=== PATIENT | female | born 1935 | race Caucasian/White ===

== ENCOUNTER → 2017-09-15 | Outpatient (CLI) | payer OTHER, BC ==
[~2017-09-15] MED LIST: AMBIEN 5 MG TABL5 M1 PO; ARIPIPRAZOLE2 MG PO; ASPIR-TRIN325 MG PO; ATORVASTATIN CA40 MG PO; AZITHROMYCIN 2250 MG PO; BENZONATATE100 MG PO; BUPROPION HCL150 M1 PO; CIPRO500 MG PO; DUONEB 2.5-0.5 M3 ML INH; FISH OIL 1,001000 M2 PO; FLAGYL500 MG PO; GLUCOSAMINE HC500 MG PO; NORVASC2.5 MG PO; PREDNISONE 10 M10 MG PO; TOPROL XL25 MG PO; ZOFRAN ODT4 MG PO; ZOLOFT50 M1 PO
== END ==
LOC: RAD 03:44
DX: Z12.31 Encounter for screening mammogram for malignant neoplasm of breast (principal)

== ENCOUNTER → 2018-01-06 | Outpatient (CLI) | payer OTHER, BC ==
[~2018-01-06] MED LIST changes: -ARIPIPRAZOLE2 MG PO; -CIPRO500 MG PO; -FISH OIL 1,001000 M2 PO; -FLAGYL500 MG PO; -ZOFRAN ODT4 MG PO; -ZOLOFT50 M1 PO
== END ==
LOC: RAD 12:33
DX: J98.4 Other disorders of lung (principal)

== ENCOUNTER 2018-02-28 11:33 | Emergency (ER) | payer OTHER, BC ==
[~2018-02-28] VITALS: Ht 165.1 cm; Wt 66.2 kg
[2018-02-28 11:52] LABS: URINE BILIRUBIN NEGATIVE (Negative); URINE BLOOD 1+ (Negative); URINE CLARITY CLEAR; URINE COLOR YELLOW; URINE GLUCOSE-RANDOM* NEGATIVE (Negative); URINE KETONES NEGATIVE (Negative); URINE NITRITE-REFLEX NEGATIVE (Negative); URINE PROTEIN (DIPSTICK) NEGATIVE (Negative); URINE SPECIFIC GRAVITY 1.015 (1.005-1.035); URINE UROBILINOGEN 0.2 E.U./dl (0.2-1.0)
[2018-02-28 11:53] LABS: URINE LEUKOCYTES-REFLEX 1+ (Negative)
[2018-02-28 12:06] LABS: BACTERIA-REFLEX 1-9 Few /HPF (None Seen); CASTS None Seen /LPF (None Seen); CRYSTALS None Seen /LPF (None Seen); MUCUS 4-6 Moderate strn/LPF (None Seen); SQUAMOUS 4-10 Moderate /LPF (0-3); URINE RBC 3-10 Few /HPF (0-2); URINE WBC-REFLEX 0-5 Rare /HPF (0-5)
[2018-02-28 12:54] LABS: ABSOLUTE NEUTROPHILS 9.7 thou/uL (1.4-8.2); BASOPHILS 0.7 % (0.0-2.0); EOSINOPHILS 0.5 % (0.0-3.0); HEMATOCRIT 40.3 % (37.0-47.0); HEMOGLOBIN 14.1 gm/dL (12.0-15.0); LYMPHOCYTES 5.9 % (24.0-44.0); MCH 31.8 pg (26.0-34.0); MONOCYTES 8.1 % (1.0-8.0); PLATELET COUNT 172 thou/uL (150-400); POLYS 84.8 % (36.0-66.0); RBC 4.43 mil/uL (4.20-5.00); RDW 14.7 % (10.5-14.5); WBC 11.4 thou/uL (4.0-11.0)
[2018-02-28] MEDS ORDERED: FISH OIL 1,001000 M2 PO (12:54)
[2018-02-28] MEDS ORDERED: NORVASC2.5 MG PO (12:55)
[2018-02-28] MEDS ORDERED: ZOLOFT50 M1 PO (12:56)
[2018-02-28] MEDS ORDERED: ARIPIPRAZOLE2 MG PO (12:57)
[2018-02-28 13:01] LABS: CALCIUM 8.9 mg/dL (8.5-10.1); POTASSIUM 4.1 mmol/L (3.5-5.1)
[2018-02-28 13:07] LABS: ALBUMIN 3.7 g/dL (3.4-5.0); TOTAL PROTEIN 6.8 g/dL (6.4-8.2)
[2018-02-28] MEDS ORDERED: ZOFRAN ODT4 MG PO (14:45)
[2018-02-28] MEDS ORDERED: CIPRO500 MG PO (14:45)
[2018-02-28] MEDS ORDERED: FLAGYL500 MG PO (14:45)
== END 2018-02-28 15:06 | disposition home or self-care (01) ==
LOC: ER 11:33
PROVIDERS: Physician Assistant
DX: K52.9 Noninfective gastroenteritis and colitis, unspecified (principal); I10 Essential (primary) hypertension; E78.00 Pure hypercholesterolemia, unspecified; J44.9 Chronic obstructive pulmonary disease, unspecified; Z90.710 Acquired absence of both cervix and uterus

== ENCOUNTER → 2018-09-16 | Outpatient (CLI) | payer OTHER, BC ==
[~2018-09-16] MED LIST changes: +ARIPIPRAZOLE2 MG PO; +CIPRO500 MG PO; +FISH OIL 1,001000 M2 PO; +FLAGYL500 MG PO; +ZOFRAN ODT4 MG PO; +ZOLOFT50 M1 PO
== END ==
LOC: RAD 14:12
DX: Z12.31 Encounter for screening mammogram for malignant neoplasm of breast (principal)

== ENCOUNTER → 2018-11-03 | Outpatient (CLI) | payer OTHER, BC | LOC: MRI 10:14 | DX: M51.36 Other intervertebral disc degeneration, lumbar region (principal); M47.817 Spondylosis without myelopathy or radiculopathy, lumbosacral region; M48.07 Spinal stenosis, lumbosacral region ==

== ENCOUNTER 2019-10-24 11:19 | Emergency (ER) | payer OTHER, BC ==
[~2019-10-24] VITALS: Ht 165.1 cm; Wt 61.7 kg
[2019-10-24] MEDS ORDERED: ASA81BEC PO (11:32)
[2019-10-24] MEDS ORDERED: CALCIUM500 MG PO (11:33)
[2019-10-24 12:07] LABS: ABSOLUTE NEUTROPHILS 16.3 thou/uL (1.4-8.2); BASOPHILS 0.1 % (0.0-2.0); EOSINOPHILS 0.1 % (0.0-3.0); HEMATOCRIT 43.4 % (37.0-47.0); HEMOGLOBIN 14.6 gm/dL (12.0-15.0); LYMPHOCYTES 1.3 % (24.0-44.0); MCH 32.1 pg (26.0-34.0); MCHC 33.8 g/dL (28.0-37.0); MCV 95.1 fL (80.0-100.0); MONOCYTES 4.5 % (1.0-8.0); PLATELET COUNT 210 thou/uL (150-400); RBC 4.56 mil/uL (4.20-5.00); RDW 14.3 % (10.5-14.5); WBC 17.3 thou/uL (4.0-11.0)
[2019-10-24 12:10] LABS: CALCIUM 9.5 mg/dL (8.5-10.1); CREATININE 0.9 mg/dL (0.6-1.0)
[2019-10-24 12:16] LABS: ALBUMIN 3.8 g/dL (3.4-5.0); TOTAL BILIRUBIN 0.9 mg/dL (<0.1-1.0); TOTAL PROTEIN 6.9 g/dL (6.4-8.2)
[2019-10-24 12:29] LABS: URINE BILIRUBIN NEGATIVE (Negative); URINE BLOOD NEGATIVE (Negative); URINE CLARITY CLEAR; URINE COLOR YELLOW; URINE GLUCOSE-RANDOM* NEGATIVE (Negative); URINE KETONES NEGATIVE (Negative); URINE NITRITE-REFLEX NEGATIVE (Negative); URINE PROTEIN (DIPSTICK) 1+ (Negative); URINE UROBILINOGEN 0.2 E.U./dl (0.2-1.0)
[2019-10-24 12:31] LABS: URINE LEUKOCYTES-REFLEX 2+ (Negative)
[2019-10-24 12:58] LABS: SQUAMOUS >10 Many /LPF (0-3)
[2019-10-24 13:00] LABS: CASTS None Seen /LPF (None Seen); CRYSTALS None Seen /LPF (None Seen); URINE RBC None Seen /HPF (0-2); URINE WBC-REFLEX 6-15 Few /HPF (0-5)
[2019-10-24] MEDS ORDERED: MIRALAX119 GM PO (14:28)
[2019-10-24] MEDS ORDERED: DULCOLAX10 MG RECTAL (14:28)
[2019-10-24 14:52] VITALS: BP 156/88
--- NOTE | 2019-10-24 17:00 | EKG ---
[facility] [place] [address] ELECTROCARDIOGRAM REPORT Name: BOO RAMOS V Room #: DEP [facility]#: [id number] Admission: 10/24/19 Attend Phys: Discharge: 10/24/19 Date of : 34 Report #: [id number] THIS REPORT FOR: cc: Karine Fernández MD, Carrie W. MD Lundgren,Sachin Mendoza MD [facility] ~ THIS REPORT FOR: //name// [facility] ED Test Date: 2019-10-24 Test Time: 11:43:11 Pat Name: BOO RAMOS Department: Room: Gender: F Education Supervisor: ESHEETS : 1935 Requested By: Cruzito James Order Number: [id number] MD: Sachin Lara Measurements Intervals [place] Rate: 70 P: 69 [place]: 140 QRS: -16 QRSD: 95 T: 74 QT: 391 QTc: 422 Interpretive Statements Sinus rhythm No significant abnormality Compared to ECG 10/05/2016 14:11:11 Atrial premature complex(es) no longer present Electronically Signed On 10-24-2019 16:59:07 BUILDING CLEANER by Sachin Lara [email or web address] <ELECTRONICALLY SIGNED> By: Sachin Lara MD, [facility] 10/24/19 1659 1143 1143 Sachin Lara MD, [facility] /EPI
[2019-10-25] MEDS ORDERED: ABILIFY 5 MG TAB5 M1 PO (19:22)
[2019-10-25] MEDS ORDERED: SERTRALINE HCL100 MG PO (19:23)
[2019-10-25] MEDS ORDERED: ANORO ELLIPTA1 EACH INH (19:23)
[2019-10-25] MEDS ORDERED: LIPITOR 40 MG T40 M1 PO (19:24)
[2019-10-25] MEDS ORDERED: FLONASE 0.05%50 MCG NASAL (19:25)
[2019-10-25] MEDS ORDERED: PROAIR HFA8.5 GM INH (19:25)
== END 2019-10-24 14:53 | disposition home or self-care (01) ==
LOC: ER 11:19
PROVIDERS: Emergency Medicine
DX: K59.00 Constipation, unspecified (principal); R11.2 Nausea with vomiting, unspecified; J44.9 Chronic obstructive pulmonary disease, unspecified; E78.00 Pure hypercholesterolemia, unspecified; I10 Essential (primary) hypertension; Z90.710 Acquired absence of both cervix and uterus

== ENCOUNTER 2019-10-25 17:25 | Inpatient (IN) | payer OTHER, BC ==
[~2019-10-25] VITALS: Ht 165.1 cm; Wt 66.1 kg
[~2019-10-25 17:25] MED LIST changes: +ASA81BEC PO; +CALCIUM500 MG PO; +DULCOLAX10 MG RECTAL; +MIRALAX119 GM PO
[2019-10-25 17:34] VITALS: BP 186/82
[2019-10-25 19:15] LABS: HEMATOCRIT 42.5 % (37.0-47.0); HEMOGLOBIN 14.3 gm/dL (12.0-15.0); MCH 32.2 pg (26.0-34.0); MCHC 33.6 g/dL (28.0-37.0); MCV 95.7 fL (80.0-100.0); RBC 4.44 mil/uL (4.20-5.00); RDW 14.7 % (10.5-14.5)
[2019-10-25] MEDS ORDERED: ABILIFY 5 MG TAB5 M1 PO (19:22)
[2019-10-25] MEDS ORDERED: ANORO ELLIPTA1 EACH INH (19:23)
[2019-10-25] MEDS ORDERED: SERTRALINE HCL100 MG PO (19:23)
[2019-10-25 19:24] LABS: CALCIUM 9.8 mg/dL (8.5-10.1); CREATININE 0.8 mg/dL (0.6-1.0); POTASSIUM 3.9 mmol/L (3.5-5.1)
[2019-10-25] MEDS ORDERED: LIPITOR 40 MG T40 M1 PO (19:24)
[2019-10-25] MEDS ORDERED: FLONASE 0.05%50 MCG NASAL (19:25)
[2019-10-25] MEDS ORDERED: PROAIR HFA8.5 GM INH (19:25)
[2019-10-25 21:56] VITALS: BP 205/82
[2019-10-25 22:07] VITALS: BP 201/85
[2019-10-25 23:30] VITALS: BP 191/87
[2019-10-26 05:17] VITALS: BP 176/75
[2019-10-26 05:24] LABS: HEMOGLOBIN 13.5 gm/dL (12.0-15.0); WBC 17.3 thou/uL (4.0-11.0)
[2019-10-26 05:29] LABS: ABSOLUTE NEUTROPHILS 15.9 thou/uL (1.4-8.2); BASOPHILS 0.1 % (0.0-2.0); HEMATOCRIT 40.3 % (37.0-47.0); LYMPHOCYTES 2.4 % (24.0-44.0); MCHC 33.6 g/dL (28.0-37.0); MCV 95.2 fL (80.0-100.0); MONOCYTES 5.4 % (1.0-8.0); PLATELET COUNT 193 thou/uL (150-400); POLYS 92.1 % (36.0-66.0); RBC 4.23 mil/uL (4.20-5.00); RDW 14.3 % (10.5-14.5)
[2019-10-26 05:36] LABS: CALCIUM 8.8 mg/dL (8.5-10.1); CREATININE 0.7 mg/dL (0.6-1.0); MAGNESIUM 1.7 mg/dL (1.8-2.4); POTASSIUM 3.5 mmol/L (3.5-5.1)
[2019-10-26 06:47] LABS: URINE BILIRUBIN NEGATIVE (Negative); URINE BLOOD NEGATIVE (Negative); URINE CLARITY CLEAR; URINE GLUCOSE-RANDOM* NEGATIVE (Negative); URINE KETONES 2+ (Negative); URINE LEUKOCYTES-REFLEX NEGATIVE (Negative); URINE NITRITE-REFLEX NEGATIVE (Negative); URINE PROTEIN (DIPSTICK) 2+ (Negative); URINE SPECIFIC GRAVITY 1.025 (1.005-1.035); URINE UROBILINOGEN 0.2 E.U./dl (0.2-1.0)
[2019-10-26 06:52] LABS: URINE COLOR DK YELLOW
[2019-10-26 06:59] LABS: CASTS None Seen /LPF (None Seen); SQUAMOUS 4-10 Moderate /LPF (0-3)
[2019-10-26 07:00] LABS: BACTERIA-REFLEX 1-9 Few /HPF (None Seen); CRYSTALS None Seen /LPF (None Seen); URINE RBC None Seen /HPF (0-2); URINE WBC-REFLEX 0-5 Rare /HPF (0-5); WBC CLUMPS Rare (None Seen)
[2019-10-26 07:46] VITALS: BP 142/66
[2019-10-26 16:30] VITALS: BP 155/64
[2019-10-26 19:25] VITALS: BP 167/70
[2019-10-26 23:15] VITALS: BP 151/67
[2019-10-27 07:11] VITALS: BP 159/80
[2019-10-27 07:51] LABS: HEMATOCRIT 37.2 % (37.0-47.0); HEMOGLOBIN 12.3 gm/dL (12.0-15.0); MCH 31.7 pg (26.0-34.0); MCHC 33.2 g/dL (28.0-37.0); MCV 95.6 fL (80.0-100.0); RBC 3.89 mil/uL (4.20-5.00); RDW 14.2 % (10.5-14.5); WBC 11.1 thou/uL (4.0-11.0)
[2019-10-27 08:08] LABS: ALBUMIN 2.4 g/dL (3.4-5.0); CALCIUM 8.2 mg/dL (8.5-10.1); CREATININE 0.6 mg/dL (0.6-1.0); PHOSPHORUS 1.9 mg/dL (2.5-4.9); POTASSIUM 3.1 mmol/L (3.5-5.1)
[2019-10-27 19:12] VITALS: BP 156/76
[2019-10-28] VITALS (7 sets, daily range): BP systolic 130–177; BP diastolic 75–91
[2019-10-28 09:30] LABS: HEMATOCRIT 41.8 % (37.0-47.0); HEMOGLOBIN 13.6 gm/dL (12.0-15.0); MCH 31.6 pg (26.0-34.0); MCHC 32.5 g/dL (28.0-37.0); MCV 97.3 fL (80.0-100.0); RBC 4.3 mil/uL (4.20-5.00); RDW 14.5 % (10.5-14.5); WBC 11.2 thou/uL (4.0-11.0)
[2019-10-28 09:39] LABS: CALCIUM 8.4 mg/dL (8.5-10.1); CREATININE 0.6 mg/dL (0.6-1.0); MAGNESIUM 2.1 mg/dL (1.8-2.4); POTASSIUM 3.5 mmol/L (3.5-5.1)
--- NOTE | 2019-10-28 16:31 | EKG ---
[facility] [place] [address] ELECTROCARDIOGRAM REPORT Name: BOO RAMOS Room #: 207-P ADM IN M.R.#: [id number] Admission: 10/25/19 Attend Phys: Sarabjit Barboza MD Discharge: Date of : 34 Report #: [id number] THIS REPORT FOR: cc: Karine Fernández MD, Carrie W. MD Lundgren,Sachin Mendoza MD [facility] ~ THIS REPORT FOR: //name// [facility] Test Date: 2019-10-28 Test Time: 09:53:48 Pat Name: BOO RAMOS Department: Room: 207 Gender: F Replanting Machine Crew: MICHAEL : 1935 Requested By: Sarabjit Barboza Order Number: [id number] MD: Sachin Lara Measurements Intervals [place] Rate: 169 P: [place]: QRS: -6 QRSD: 82 T: 105 QT: 274 QTc: 460 Interpretive Statements Atrial fibrillation with rapid V-rate Low voltage, extremity leads Poor R wave progression Repolarization abnormality, prob rate related Compared to ECG 10/24/2019 11:43:11 Atrial fibrillation has replaced sinus rhythm Electronically Signed On 10-28-2019 16:30:26 PRINTS AND DRAWINGS CURATOR by Sachin Lara [email or web address] <ELECTRONICALLY SIGNED> By: Sachin Lara MD, [facility] 10/28/19 1630 0953 0953 Sachin Lara MD, [facility] /EPI
[2019-10-29] VITALS (16 sets, daily range): BP systolic 109–142; BP diastolic 67–92
[2019-10-29 05:06] LABS: HEMATOCRIT 37.6 % (37.0-47.0); HEMOGLOBIN 12.6 gm/dL (12.0-15.0); MCH 32.1 pg (26.0-34.0); MCHC 33.5 g/dL (28.0-37.0); MCV 95.7 fL (80.0-100.0); RBC 3.93 mil/uL (4.20-5.00); RDW 14.6 % (10.5-14.5); WBC 10.8 thou/uL (4.0-11.0)
[2019-10-29 05:38] LABS: CREATININE 0.6 mg/dL (0.6-1.0); MAGNESIUM 1.7 mg/dL (1.8-2.4); POTASSIUM 3.9 mmol/L (3.5-5.1)
--- NOTE | 2019-10-29 10:06 | 2DMMODE ---
[facility] [place] [address] 2 D/M-MODE ECHOCARDIOGRAM Name: BOO RAMOS Room #: 207-P ADM IN M.R.#: [id number] Admission: 10/25/19 Attend Phys: Sarabjit Barboza MD Discharge: Date of : 34 Report #: [id number] THIS REPORT FOR: cc: Karine Fernández MD, Carrie W. MD Lundgren, Craig H. MD [facility] ~ APPROVED REPORT Study performed: 10/29/2019 07:54:06 EXAM: Comprehensive 2D, Doppler, and color-flow Echocardiogram Patient Location: Bedside Room #: 207 Status: routine BSA: 1.73 HR: 86 bpm BP: 126/67 mmHg Rhythm: Atrial Fibrillation Other Information Study Quality: Technically Difficult Technically limited study due to lung disease. Indications COPD Atrial Fibrillation CAD Hypertension/HDD HLD 2D Dimensions RVDd: 33.80 mm IVSd: 9.58 (7-11mm) LVOT Diam: 20.80 (18-24mm) LVDd: 30.18 mm PWd: 9.77 (7-11mm) Ascending Ao: 29.20 (22-36mm) LVDs: 22.71 (25-40mm) Aortic Root: 35.57 mm IVC: 18.00 mm Volumes Left Atrial Volume (Systole) Single Plane 4CH: 34.75 mL Single Plane 2CH: 30.25 mL LA ESV Index: 21.00 mL/m2 [facility] [address] [place] [address] 2 D/M-MODE ECHOCARDIOGRAM Name: BOO RAMOS Room #: 207-P [facility] IN M.R.#: [id number] Admission: 10/25/19 Attend Phys: Sarabjit Barboza, Discharge: Date of : 34 Report #: [id number] Aortic Valve AoV Peak Eleazar.: 1.02 m/s AO Peak Gr.: 4.14 mmHg LVOT Max P.28 mmHg LVOT Max V: 0.75 m/s CALEB Vmax: 2.52 cm2 Mitral Valve MV Decel. Time: 122.72 ms MV E Max Eleazar.: 1.08 m/s IVRT: 89.97 ms Pulmonary Valve PV Peak Eleazar.: 0.94 m/s PV Peak Gr.: 3.69 mmHg Tricuspid Valve TR Peak Eleazar.: 3.14 m/s RAP Estimate: 10.00 mmHg TR Peak Gr.: 34.28 mmHg PA Pressure: 44.00 mmHg Left Ventricle The left ventricle is normal size. There is normal LV segmental wall motion. There is normal left ventricular wall thickness. The left ventricular systolic function is normal. The left ventricular ejection fraction is within the normal range. LVEF is 65-70%. This study is not technically sufficient to allow evaluation of the LV diastolic function due to atrial fibrillation. Right Ventricle The right ventricle is normal size. The right ventricular systolic function is normal. Atria The left atrium size is normal. Right atrium is at the upper limits of normal. Aortic Valve The aortic valve is mildly calcified. Trace to mild aortic regurgitation. There is no aortic valvular stenosis. Mitral Valve Mild mitral annular calcification. Trace mitral regurgitation. No evidence of mitral valve stenosis. Tricuspid Valve The tricuspid valve is normal in structure. Moderate to severe tricuspid regurgitation. PAP is estimated at 44 mmHg. [facility] [place] [place] [address] 2 D/M-MODE ECHOCARDIOGRAM Name: BOO RAMOS Room #: 207-P [facility] IN M.R.#: [id number] Admission: 10/25/19 Attend Phys: Sarabjit Barboza, Discharge: Date of : 34 Report #: [id number] Pulmonic Valve Pulmonic valve is not well visualized. Great Vessels The aortic root is normal in size. IVC is normal in size and collapses <50% with inspiration. Pericardium There is no pericardial effusion. <Conclusion> The left ventricular systolic function is normal. There is normal LV segmental wall motion. LVEF is 65-70%. The aortic valve is mildly calcified. Trace to mild aortic regurgitation, no stenosis. Mild mitral annular calcification. Trace mitral regurgitation. Moderate to severe tricuspid regurgitation. Pulmonary artery pressure estimated at 44 mmHg. There is no pericardial effusion. <ELECTRONICALLY SIGNED> By: Sachin Lara MD, [facility] 10/29/19 1005 04 Sachin Lara MD, [facility] /INF
--- NOTE | 2019-10-29 10:30 | EKG ---
[facility] [place] [address] ELECTROCARDIOGRAM REPORT Name: BOO RAMOS Room #: 207-P ADM IN M.R.#: [id number] Admission: 10/25/19 Attend Phys: Sarabjit Barboza MD Discharge: Date of : 34 Report #: [id number] THIS REPORT FOR: cc: Karine Fernández MD, Carrie W. MD Lundgren,Sachin Mendoza MD [facility] ~ THIS REPORT FOR: //name// [facility] Test Date: 2019-10-29 Test Time: 07:10:49 Pat Name: BOO RAMOS Department: Room: 207 P Gender: F Menagerie Caretaker: Raffaele KERR : 1935 Requested By: Lisa Rausch Order Number: [id number] MD: Sachin Lara Measurements Intervals [place] Rate: 114 P: [place]: QRS: -35 QRSD: 88 T: 72 QT: 374 QTc: 516 Interpretive Statements Atrial flutter Left axis deviation Low voltage, extremity leads Compared to ECG 10/28/2019 09:53:48 No significant change was found Electronically Signed On 10-29-2019 10:29:34 VP OF DIGITAL MARKETING by Sachin Lara [email or web address] <ELECTRONICALLY SIGNED> By: Sachin Lara MD, [facility] 10/29/19 1029 Sachin Lara MD, [facility] /EPI
[2019-10-30] VITALS (11 sets, daily range): BP systolic 113–144; BP diastolic 70–100
[2019-10-30 08:10] LABS: CALCIUM 8.6 mg/dL (8.5-10.1); CREATININE 0.7 mg/dL (0.6-1.0); MAGNESIUM 1.9 mg/dL (1.8-2.4); POTASSIUM 3.9 mmol/L (3.5-5.1)
[2019-10-31] VITALS (9 sets, daily range): BP systolic 116–170; BP diastolic 62–87
[2019-10-31 04:25] LABS: CALCIUM 8.2 mg/dL (8.5-10.1); CREATININE 0.6 mg/dL (0.6-1.0); MAGNESIUM 1.7 mg/dL (1.8-2.4); POTASSIUM 3.8 mmol/L (3.5-5.1)
--- NOTE | 2019-10-31 09:00 | EKG ---
[facility] [place] [address] ELECTROCARDIOGRAM REPORT Name: BOO RAMOS Room #: 207-P ADM IN M.R.#: [id number] Admission: 10/25/19 Attend Phys: Sarabjit Barboza MD Discharge: Date of : 34 Report #: [id number] THIS REPORT FOR: cc: Karine Fernández MD, Carrie W. MD Couchonnal, Luis F. MD ~ THIS REPORT FOR: //name// [facility] Test Date: 2019-10-31 Test Time: 06:11:14 Pat Name: BOO RAMOS Department: Room: 207 P Gender: F Automotive Electrical Helper: Carley ROMERO : 1935 Requested By: Sachin Lara Order Number: [id number] MD: German Sullivan Measurements Intervals [place] Rate: 114 P: ID: QRS: 1 QRSD: 104 T: 176 QT: 356 QTc: 491 Interpretive Statements Atrial flutter Ventricular premature complex Low voltage, extremity leads RSR' in V1 or V2, right VCD or RVH Nonspecific T abnormalities, lateral leads Compared to ECG 10/29/2019 07:10:49 Electronically Signed On 10-31-2019 8:59:42 CDT by German Sullivan [email or web address] <ELECTRONICALLY SIGNED> By: German Sullivan MD 10/31/1960 0 0 German Sullivan MD /EPI
[2019-11-01 00:17] VITALS: BP 135/75
[2019-11-01 04:26] VITALS: BP 136/80
[2019-11-01 06:31] LABS: CALCIUM 7.9 mg/dL (8.5-10.1); CREATININE 0.6 mg/dL (0.6-1.0); MAGNESIUM 1.9 mg/dL (1.8-2.4); POTASSIUM 3.6 mmol/L (3.5-5.1)
[2019-11-01 07:30] VITALS: BP 153/69
[2019-11-01 12:04] VITALS: BP 147/69
[2019-11-01 16:27] VITALS: BP 144/59
[2019-11-01 19:49] VITALS: BP 140/62
[2019-11-02 04:39] VITALS: BP 137/57
[2019-11-02 04:55] LABS: CALCIUM 7.3 mg/dL (8.5-10.1); CREATININE 0.6 mg/dL (0.6-1.0); MAGNESIUM 1.6 mg/dL (1.8-2.4); POTASSIUM 3.4 mmol/L (3.5-5.1)
[2019-11-02 07:18] LABS: HEMATOCRIT 35.4 % (37.0-47.0); HEMOGLOBIN 11.7 gm/dL (12.0-15.0); MCH 31.7 pg (26.0-34.0); MCHC 33.1 g/dL (28.0-37.0); MCV 95.8 fL (80.0-100.0); PLATELET COUNT 373 thou/uL (150-400); RBC 3.69 mil/uL (4.20-5.00); RDW 14.8 % (10.5-14.5); WBC 11.3 thou/uL (4.0-11.0)
[2019-11-02 08:00] VITALS: BP 126/67
--- NOTE | 2019-11-02 08:17 | EKG ---
[facility] [place] [address] ELECTROCARDIOGRAM REPORT Name: BOO RAMOS Room #: 207-P ADM IN M.R.#: [id number] Admission: 10/25/19 Attend Phys: Sarabjit Barboza MD Discharge: Date of : 34 Report #: [id number] THIS REPORT FOR: cc: Karine Fernández MD, Carrie W. MD Couchonnal, Luis F. MD ~ THIS REPORT FOR: //name// [facility] Test Date: 2019-11-02 Test Time: 07:52:31 Pat Name: BOO RAMOS Department: Room: 207 P Gender: F Products Mechanical Design Engineer: MICHAEL : 1935 Requested By: Sachin Lara Order Number: [id number] MD: German Sullivan Measurements Intervals [place] Rate: 68 P: 46 VT: 157 QRS: -18 QRSD: 80 T: 78 QT: 421 QTc: 448 Interpretive Statements Sinus rhythm Low voltage, extremity leads Compared to ECG 10/31/2019 06:11:14 Atrial flutter no longer present Ventricular premature complex(es) no longer present Right ventricular hypertrophy no longer present T-wave abnormality no longer present Electronically Signed On 11-02-2019 8:16:28 CDT by German Sullivan [email or web address] <ELECTRONICALLY SIGNED> By: German Sullivan MD 11/02/19815 1 1 German Sullivan MD /EPI
[2019-11-02 09:34] LABS: ABSOLUTE NEUTROPHILS 10.1 thou/uL (1.4-8.2)
[2019-11-02 09:35] LABS: PLATELET ESTIMATE NORMAL
[2019-11-02 10:45] VITALS: BP 150/67
[2019-11-02 16:24] VITALS: BP 152/62
[2019-11-02 19:22] VITALS: BP 169/67
[2019-11-03 00:11] VITALS: BP 153/64
[2019-11-03 03:49] VITALS: BP 162/61
[2019-11-03 05:29] LABS: HEMATOCRIT 34.4 % (37.0-47.0); HEMOGLOBIN 11.5 gm/dL (12.0-15.0); MCH 31.9 pg (26.0-34.0); MCHC 33.3 g/dL (28.0-37.0); MCV 95.6 fL (80.0-100.0); RBC 3.59 mil/uL (4.20-5.00); RDW 14.7 % (10.5-14.5); WBC 11.5 thou/uL (4.0-11.0)
[2019-11-03 05:48] LABS: CALCIUM 7.5 mg/dL (8.5-10.1); CREATININE 0.5 mg/dL (0.6-1.0); POTASSIUM 3.9 mmol/L (3.5-5.1); TOTAL BILIRUBIN 0.3 mg/dL (<0.1-1.0); TOTAL PROTEIN 4.1 g/dL (6.4-8.2)
[2019-11-03 08:00] VITALS: BP 161/68
[2019-11-03 11:30] VITALS: BP 177/71
[2019-11-03 16:10] VITALS: BP 185/70
[2019-11-03 19:46] VITALS: BP 159/73
[2019-11-04 04:26] VITALS: BP 193/86
[2019-11-04 05:15] LABS: HEMATOCRIT 37.4 % (37.0-47.0); HEMOGLOBIN 12.5 gm/dL (12.0-15.0); MCH 31.9 pg (26.0-34.0); MCHC 33.4 g/dL (28.0-37.0); MCV 95.2 fL (80.0-100.0); RBC 3.93 mil/uL (4.20-5.00); RDW 14.7 % (10.5-14.5)
[2019-11-04 05:25] LABS: CALCIUM 8.6 mg/dL (8.5-10.1); CREATININE 0.6 mg/dL (0.6-1.0); POTASSIUM 3.6 mmol/L (3.5-5.1)
[2019-11-04 06:37] VITALS: BP 160/65
[2019-11-04 07:45] VITALS: BP 157/62
[2019-11-04 11:35] VITALS: BP 176/59
[2019-11-04 15:30] VITALS: BP 173/60
[2019-11-04 20:45] VITALS: BP 184/65
[2019-11-05] VITALS (7 sets, daily range): BP systolic 150–203; BP diastolic 63–84
[2019-11-05] MEDS ORDERED: PACERONE200 MG PO (08:50)
[2019-11-06 07:30] VITALS: BP 181/83
[2019-11-06 08:00] VITALS: BP 159/72
[2019-11-06 11:00] VITALS: BP 159/72
[2019-11-06 16:07] VITALS: BP 166/75
[2019-11-06 19:56] VITALS: BP 180/81
[2019-11-06 22:31] VITALS: BP 147/73
[2019-11-07 03:53] LABS: HEMATOCRIT 37.8 % (37.0-47.0); HEMOGLOBIN 12.8 gm/dL (12.0-15.0); MCHC 33.8 g/dL (28.0-37.0); MCV 94.7 fL (80.0-100.0); RBC 3.99 mil/uL (4.20-5.00); RDW 14.6 % (10.5-14.5); WBC 8.9 thou/uL (4.0-11.0)
[2019-11-07 04:01] LABS: CALCIUM 8.1 mg/dL (8.5-10.1); CREATININE 0.6 mg/dL (0.6-1.0); POTASSIUM 3.7 mmol/L (3.5-5.1)
[2019-11-07 07:38] VITALS: BP 152/73
[2019-11-07 16:27] VITALS: BP 138/70
[2019-11-07 19:57] VITALS: BP 170/72
[2019-11-08 06:12] LABS: HEMATOCRIT 35.4 % (37.0-47.0); MCH 32.4 pg (26.0-34.0); MCHC 33.9 g/dL (28.0-37.0); MCV 95.5 fL (80.0-100.0); RBC 3.71 mil/uL (4.20-5.00); RDW 14.6 % (10.5-14.5); WBC 6.5 thou/uL (4.0-11.0)
[2019-11-08 06:29] LABS: ALBUMIN 2.3 g/dL (3.4-5.0); CREATININE 0.6 mg/dL (0.6-1.0); PHOSPHORUS 3.4 mg/dL (2.5-4.9); POTASSIUM 3.7 mmol/L (3.5-5.1)
[2019-11-08 08:35] VITALS: BP 166/72
[2019-11-08 15:30] VITALS: BP 161/69
[2019-11-08 16:56] VITALS: BP 158/68
[2019-11-08 20:45] VITALS: BP 153/62
[2019-11-09 02:50] VITALS: BP 120/54
[2019-11-09 07:40] VITALS: BP 129/50
[2019-11-09 08:51] LABS: HEMATOCRIT 34.6 % (37.0-47.0); HEMOGLOBIN 11.7 gm/dL (12.0-15.0); MCH 32.4 pg (26.0-34.0); MCHC 33.9 g/dL (28.0-37.0); MCV 95.5 fL (80.0-100.0); RBC 3.62 mil/uL (4.20-5.00); RDW 14.5 % (10.5-14.5); WBC 10.7 thou/uL (4.0-11.0)
[2019-11-09 08:58] LABS: ALBUMIN 2.3 g/dL (3.4-5.0); CALCIUM 8.5 mg/dL (8.5-10.1); CREATININE 0.9 mg/dL (0.6-1.0); MAGNESIUM 1.3 mg/dL (1.8-2.4); PHOSPHORUS 3.5 mg/dL (2.5-4.9); POTASSIUM 3.8 mmol/L (3.5-5.1)
[2019-11-09 16:16] VITALS: BP 139/59
[2019-11-09 17:28] VITALS: BP 112/53
[2019-11-09 19:10] VITALS: BP 131/60
[2019-11-10 07:53] LABS: HEMATOCRIT 33.5 % (37.0-47.0); HEMOGLOBIN 11.4 gm/dL (12.0-15.0); MCH 32.9 pg (26.0-34.0); MCHC 33.9 g/dL (28.0-37.0); MCV 96.8 fL (80.0-100.0); RBC 3.46 mil/uL (4.20-5.00); RDW 14.6 % (10.5-14.5)
[2019-11-10 08:03] LABS: ALBUMIN 2.3 g/dL (3.4-5.0); CALCIUM 8.3 mg/dL (8.5-10.1); CREATININE 0.7 mg/dL (0.6-1.0); PHOSPHORUS 3.2 mg/dL (2.5-4.9); POTASSIUM 3.5 mmol/L (3.5-5.1)
[2019-11-10 08:10] VITALS: BP 160/63
[2019-11-10 13:30] VITALS: BP 154/75
--- NOTE | 2019-11-10 17:07 | PATH ---
[facility] [place] [address] [place] [address] PATHOLOGY RPT PROCEDURE Name: BOO RAMOS V4 Room #: 412-P ADM IN M.R.#: [id number] Admission: 10/25/19 Date of : 34 Discharge: Report #: [id number] Path Case #: [id number] [facility] Accession Number: [id number] . 01 Material submitted: . colon - RIGHT HEMICOLECTOMY. Modifiers: right . 01 Clinical history: . Colon mass . 02 Diagnosis: Large intestine, right hemicolectomy: - Marked surface ulceration associated with tattoo pigment, compatible with biopsy site and reparative changes. - Marked serositis. - Small bowel and cecum adhesed. - Markedly attenuated ascending colon wall. - Appendix with no significant diagnostic abnormalities. - Negative for dysplasia or malignancy. - Margins unremarkable. - Nine reactive lymph nodes. (IUV:masha; 11/10/2019) MBR 11/10/2019 1611 Local . 02 Electronically signed: . Farhana Martinez MD, Pathologist NPI- [id number] . 01 Gross description: . The specimen is received in formalin, labeled "Boo Ramos, right hemicolectomy" and consists of a right hemicolectomy specimen with terminal ileum measuring approximately 25.0 cm in length and up to 2.0 cm in diameter, ascending colon (17.0 cm in length and up to 5.5 cm in diameter), appendix (4.1 cm in length and 0.4 cm in diameter), and pericolic fat up to 5.6 cm. The serosa is hubbard-brown with thin adhesions and extensive black tattoo at the proximal ascending colon. There is a gsal-qa-obmu adhesion of the small bowel to the cecal pouch. The terminal ileum mucosa is green hubbard with no mass lesions. The ascending colon displays flattened/reduced folds with a previous biopsy site, which is consistent with the black tattoo that at is greater than 10 cm from both proximal and distal margins and greater than 6 cm from the mesenteric margin. No additional polyps or mass lesions are identified. The appendix serosa is pink-hubbard smooth shiny with sectioning revealing a pinpoint lumen with no gross lesions. The pericolic fat reveals a few lymph node candidates measuring between 0.2 cm and 0.9 cm. Crossband Layer sections are submitted as follows: [place] [address] PATHOLOGY RPT PROCEDURE Name: BOO RAMOS V4 Room #: 412-P ADM IN M.R.#: [id number] Admission: 10/25/19 Date of : 34 Discharge: Report #: [id number] Path Case #: [id number] A1: Proximal margin A2: Distal margin A3: Entire previous biopsy site A5: Reduced/flattened ascending colon mucosa A6: Appendix A7-A8: Multiple intact lymph nodes (SDY; 11/09/2019) SYU/SYU 11/09/2019 1610 Local . 02 Pathologist provided ICD-10: K65.8, K63.3 . 02 CPT . 384774 Specimen Comment: A courtesy copy of this report has been sent to [phone] Specimen Comment: [phone], Specimen Comment: Report sent to ,DR EVANGELISTA / DR DIXON Performed at: [address] [facility] [address], [place], [place] [id number] MD Mo Snell MD Phone: [phone] Performed at: [address] [facility] [address] [id number] MD Farhana Martinez MD Phone: [phone]
[2019-11-10 19:38] VITALS: BP 163/72
[2019-11-11 04:15] VITALS: BP 144/68
[2019-11-11 05:52] LABS: ALBUMIN 2.2 g/dL (3.4-5.0); CALCIUM 8.2 mg/dL (8.5-10.1); CREATININE 0.7 mg/dL (0.6-1.0); MAGNESIUM 1.2 mg/dL (1.8-2.4); PHOSPHORUS 2.5 mg/dL (2.5-4.9); POTASSIUM 3.6 mmol/L (3.5-5.1)
[2019-11-11 06:02] LABS: HEMATOCRIT 33.2 % (37.0-47.0); HEMOGLOBIN 11.5 gm/dL (12.0-15.0); MCH 32.9 pg (26.0-34.0); MCHC 34.6 g/dL (28.0-37.0); MCV 95.3 fL (80.0-100.0); RBC 3.49 mil/uL (4.20-5.00); RDW 14.9 % (10.5-14.5); WBC 8.7 thou/uL (4.0-11.0)
[2019-11-11 09:33] VITALS: BP 152/64
[2019-11-11 10:25] VITALS: BP 152/64
[2019-11-11] MEDS ORDERED: LOPRESSOR50 PO (14:24)
[2019-11-11] MEDS ORDERED: NORVASC10 MG PO (14:24)
[2019-11-11] MEDS ORDERED: PACERONE 200 M200 M1 PO (14:24)
[2019-11-11] MEDS ORDERED: COZAAR 50 MG TA50 MG PO (14:24)
[2019-11-11] MEDS ORDERED: PROTONIX40 M1 PO (14:25)
[2019-11-11] MEDS ORDERED: NEURONTIN 300300 M1 PO (14:25)
== END 2019-11-11 17:30 | DRG 329 ==
LOC: ER 17:25 → EROBS 21:37 → 4W 21:37 → 2N 10-28 11:03 → 4N 11-05 16:19 → 4S 11-08 16:10 → 4N 11-10 13:28
PROVIDERS: Hospitalist; Nurse Practitioner; Surgery; ADMIT Internal Medicine
DX: K56.690 Other partial intestinal obstruction (principal); E43 Unspecified severe protein-calorie malnutrition; E87.1 Hypo-osmolality and hyponatremia; I48.19 Other persistent atrial fibrillation; J96.10 Chronic respiratory failure, unspecified whether with hypoxia or hypercapnia; D68.59 Other primary thrombophilia; C18.9 Malignant neoplasm of colon, unspecified; J90 Pleural effusion, not elsewhere classified; K52.9 Noninfective gastroenteritis and colitis, unspecified; D49.0 Neoplasm of unspecified behavior of digestive system; I10 Essential (primary) hypertension; E78.5 Hyperlipidemia, unspecified; I16.0 Hypertensive urgency; J44.9 Chronic obstructive pulmonary disease, unspecified; F41.9 Anxiety disorder, unspecified; F32.9 Major depressive disorder, single episode, unspecified; E83.42 Hypomagnesemia; G47.00 Insomnia, unspecified; K20.9 Esophagitis, unspecified; K25.9 Gastric ulcer, unspecified as acute or chronic, without hemorrhage or perforation; K29.70 Gastritis, unspecified, without bleeding; K64.8 Other hemorrhoids; M81.0 Age-related osteoporosis without current pathological fracture; E83.39 Other disorders of phosphorus metabolism; E87.6 Hypokalemia; K59.00 Constipation, unspecified; Z79.82 Long term (current) use of aspirin; Z99.81 Dependence on supplemental oxygen; Z79.01 Long term (current) use of anticoagulants; Z90.710 Acquired absence of both cervix and uterus; I25.2 Old myocardial infarction; Z68.24 Body mass index [BMI] 24.0-24.9, adult; Z79.899 Other long term (current) drug therapy; Z79.2 Long term (current) use of antibiotics
CPT/HCPCS: 10040; 10081; 10102; 10790; 27000; 50010; 50093; 50101; 50249; 50386; 50455; 50525; 50555; 50558; 51708; 51712; 52265; 53307; 54118; 56524; 56525; 56526; 56528; 57092; 62110; 62900; 70005

== ENCOUNTER 2019-11-11 15:20 | Inpatient (IN) | payer OTHER, BC ==
[~2019-11-11] VITALS: Ht 165.1 cm; Wt 61.7 kg
--- NOTE | ~2019-11-11 | PLAN ---
[facility] [place] [address] REHAB UNIT PLAN OF CARE Name: BOO RAMOS Room #: 503-P ADM IN M.R.#: [id number] Admission: 11/11/19 Attend Phys: Bradley Cruz MD Discharge: Date of : 34 Report #: [id number] THIS REPORT FOR: //name// CC: Karine Cruz DATE OF SERVICE: 11/14/2019 PROGRESS NOTE/OVERALL PLAN OF CARE SUBJECTIVE: The patient is seen back today in followup. She is in no distress. Last recorded temperature 36.7, pulse 68, respirations 18, blood pressure 162/76. The patient denies any abdominal discomfort. She is on O2 and was on it chronically premorbidly. She notes she is eating and having bowel movements. She has been working in therapies with transfers, min assist. Gait min assist 85 feet front-wheeled walker. In occupational therapy, lower body dressing is max assist. She is seeing Speech Therapy for cognition and communication. She does have rrtbcvfr-tt-yjisxz cognitive deficits and zsybnxyn-bf-kxvnqr memory deficits. ASSESSMENT: 1. Medical complexity with generalized debilitation. 2. Small-bowel obstruction, status post right hemicolectomy with ileocolonic anastomosis on 11/08/2019. 3. Enterocolitis. 4. Colon mass, status post biopsy. 5. Hypertensive urgency. 6. Atrial fibrillation with atrial flutter. 7. Chronic obstructive pulmonary disease. She was on chronic O2 premorbidly. 8. Electrolyte abnormalities. PLAN: The overall plan of care is based on the preadmission screening, post-admission physician evaluation and information garnered from therapies and therapy assessments. 1. Estimated length of stay is probably at least 7-10 days. 2. Medical prognosis is reasonably good. 3. Anticipated interventions include the interdisciplinary acute inpatient rehabilitation program. 4. Anticipated functional outcomes would be for the patient to become modified independent with transfers, mobility and ADLs, so she can hopefully return back to her prior living situation. 5. Discharge destination is back to the home setting where she lives in an independent living apartment. Daughter, however, has made plans for her to go into an assisted living facility. 6. Expected therapy by discipline includes PT, OT and speech 1 hour per day [address] [address] REHAB UNIT PLAN OF CARE Name: BOO RAMOS V4 Room #: 503-P [facility] IN ..#: [id number] Admission: 11/11/19 Attend Phys: Bradley Cruz MD Discharge: Date of : 34 Report #: [id number] each five days a week throughout the duration of the acute inpatient rehabilitation stay. By: 0850 1233 Bradley Cruz MD /PMT
--- NOTE | ~2019-11-11 | H ---
[facility] [place] [address] HISTORY AND PHYSICAL Name: BOO RAMOS Room #: 503-P ADM IN M.R.#: [id number] Admission: 11/11/19 Attend Phys: Bradley Cruz MD Discharge: Date of : 34 Report #: [id number] THIS REPORT FOR: cc: Karine Fernández MD,Karine Cruz,Bradley Meek MD ~ CC: Karine Cruz DATE OF SERVICE: 11/11/2019 HISTORY AND PHYSICAL/POST-ADMISSION PHYSICIAN EVALUATION HISTORY OF PRESENT ILLNESS: The patient is an 84-year-old female who was originally admitted to [facility] on 10/25/2019 with abdominal pain, nausea and vomiting. She was diagnosed with enterocolitis and a small-bowel obstruction. She was initially treated conservatively with n.p.o., IV Cipro and Flagyl. She was seen by GI and Surgery. On 11/03/2019, she had an EGD and colonoscopy that showed colon mass. Biopsies obtained. Oncology following. On 11/08/2019, she underwent laparoscopic right hemicolectomy with ileocolonic anastomosis. She has been on nasal prong O2. She also was noted to have hypertensive urgency upon admission requiring IV medications to control. Cardiology has been following. She also developed atrial fibrillation and atrial flutter since rate controlled and sinus rhythm. She was noted to have medical complexity with multiple comorbidities and generalized debilitation and has been admitted for acute in-hospital inpatient rehabilitation. PAST MEDICAL HISTORY: Includes hypertension, hyperlipidemia, chronic obstructive pulmonary disease and depression. PAST SURGICAL HISTORY: Hysterectomy, rotator cuff surgery. FAMILY HISTORY: Noncontributory. HABITS: No history of alcohol or tobacco abuse. SOCIAL HISTORY: Living at home in an independent living apartment. Daughter has already made some plans for her to go into an assisted living facility. She had been independent with ADLs and IADLs were provided. She was still driving. She uses a front-wheeled walker. ALLERGIES: No known drug allergies. MEDICATIONS: Please see the full medication listing. REVIEW OF SYSTEMS: No complaints of chest pain or shortness of breath. No [facility] [address] [place] [address] HISTORY AND PHYSICAL Name: BOO RAMOS V4 Room #: 503-P [facility] IN ..#: [id number] Admission: 11/11/19 Attend Phys: Bradley Cruz MD Discharge: Date of : 34 Report #: [id number] current abdominal pain noted. She was able to eat yesterday. PHYSICAL EXAMINATION: GENERAL: The patient was seen earlier, was in no distress. VITAL SIGNS: Last recorded temperature 36.6, pulse 73, respirations 14, and blood pressure 163/66. She was somewhat sleepy, but pleasant, follows basic commands was on nasal prong O2. HEENT: Facies were symmetric. CHEST: Sounded clear to auscultation. CARDIOVASCULAR: Regular rate and rhythm. ABDOMEN: She has the abdominal binder. Incisions appeared to be intact. Soft. GENITOURINARY AND RECTAL: Deferred. EXTREMITIES: Functional range of motion of the upper and lower extremities with some decrease at end range. I would grade her strength at probably a 3+/5. DTRs are trace to 1. No focal calf swelling. She has been at a max assist for basic sit to stand and to try to ambulate a short distance with a walker. ASSESSMENT: 1. Medical complexity with generalized debilitation. 2. Small-bowel obstruction, status post right hemicolectomy with ileocolonic anastomosis on 11/08/2019. 3. Enterocolitis. 4. Colon mass, status post biopsy. 5. Hypertensive urgency. 6. Atrial fibrillation with atrial flutter. 7. Chronic obstructive pulmonary disease. She was on some chronic home O2 premorbidly 2 liters. 8. Electrolyte abnormalities. PLAN: The patient has been admitted for acute in-hospital inpatient rehabilitation. From a postadmission physician evaluation perspective, there are no relevant changes since the preadmission screening. Please see the above review of prior and current medical and functional conditions and comorbidities. Please see the patient's previous and current functional status. As far of risk of complication, she has multiple medical comorbidities as noted above. Initial plan of care involves the interdisciplinary acute inpatient rehabilitation program. Measurable functional goals would be for the patient to become modified independent with transfers, mobility, ADLs, so she can hopefully return back to her prior living situation. Goals to gradually improve her strength and endurance, tolerance functional independence. We are also having speech therapy assess her regarding cognition and communication issues and assist with therapies to improve those areas. Prognosis is reasonably good with estimated length of stay probably at least 10 days to 2 weeks pending progress. Potential barriers would include her multiple medical comorbidities and decreased functional status. [address] [address] HISTORY AND PHYSICAL Name: [place] RAMOSLENE V4 Room #: 503-P [facility] IN M.R.#: [id number] Admission: 11/11/19 Attend Phys: Bradley Cruz MD Discharge: Date of : 34 Report #: [id number] The patient meets diagnostic criteria for an acute in-hospital inpatient rehabilitation stay. She meets the medical necessity criteria and we will have the multiple air quality consultant physicians continue to follow. She does have the tolerance for therapies and has appropriate discharge goals back to the home setting. By: 1403 1419 Bradley Cruz MD /nt
--- NOTE | ~2019-11-11 | EKG ---
[facility] [address] [facility] [place] [address] ELECTROCARDIOGRAM REPORT Name: BOO RAMOS Room #: 503- ADM IN M.R.#: [id number] Admission: 11/11/19 Attend Phys: Bradley Cruz MD Discharge: Date of : 34 Report #: [id number] THIS REPORT FOR: cc: Karine Fernández MD, Carrie W. MD Epiphany, Epiphany MD ~ THIS REPORT FOR: //name// [facility] Test Date: 2019-11-24 Test Time: 10:06:50 Pat Name: BOO RAMOS Department: Room: [facility] Gender: F Floor Scraper: MICHAEL : 1935 Requested By: Christi Bob Order Number: [id number] MD: Measurements Intervals [place] Rate: 57 P: 77 [place]: 156 QRS: -4 QRSD: 87 T: 66 QT: 443 QTc: 432 Interpretive Statements Sinus rhythm Compared to ECG 11/02/2019 07:52:31 No significant changes [email or web address] By: 1006 1006 Epiphany EpiphMD claudia /EPI
[~2019-11-11 15:20] MED LIST changes: +ABILIFY 5 MG TAB5 M1 PO; +ANORO ELLIPTA1 EACH INH; +COZAAR 50 MG TA50 MG PO; +FLONASE 0.05%50 MCG NASAL; +LIPITOR 40 MG T40 M1 PO; +LOPRESSOR50 PO; +NEURONTIN 300300 M1 PO; +NORVASC10 MG PO; +PACERONE 200 M200 M1 PO; +PACERONE200 MG PO; +PROAIR HFA8.5 GM INH; +PROTONIX40 M1 PO; +SERTRALINE HCL100 MG PO
[2019-11-11 19:29] VITALS: BP 152/73
--- NOTE | 2019-11-11 19:41 | NUR ---
PT ARRIVED ON UNIT AROUND 1809, PT A&O X 4, NO ACUTE DISTRESS. PT ATE DINNER IN DINING ROOM. NO REPORTS OF PAIN. 3LUMEN PICC TO JACK, FLUSHES WELL WITH BLOOD RETURN. NO SKIN ISSUES OR WOUND NOTED. 3 ABD LAP SITES DERMABOND AND OPEN TO AIR, NO REDNESS, ODOR OR SWELLING TO AREA. LUNGS CLEAR, VSS STABLE, O2 ON 3L VIA NC. ACTIVE ABS SOUNDS, PT HAD SOME BRUSING BUT NO OPEN TEARS. ADMIN ASSESSMENT COMPLETED, PT RESTING IN BED, CALL LIGHT WITHIN REACH, WILL CONTINUE TO MONITOR PER POC.
--- NOTE | 2019-11-12 03:20 | NUR ---
PROGRESS PT A/O X4 BUT SEEMS CONFUSED AT TIMES. PT WAS AWAKE FOR MOST OF SHIFT WATCHING TV. DENIES PAIN. LUNGS CLEAR BUT DIMINISHED IN BASES WEARS 3 LITERS OF O2 VIA NASAL CANNULA, ALSO WEARS HOME O2 AT 3 LITERS. . ABDOMEN SOFT SLIGHTLY ROUNDED WITH NORMAL BS IN ALL QUADS REPORTS FLATUS, DENIES NAUSEA AND HAD A MEDIUM LOOSE STOOL TODAY. LAP SITES X 4 TO ABDOMEN WELL APPROXIMATED WITH INTACT DERMABOND X3 NO DRAINAGE OR S/S OF INFECTION NOTED, ABDOMINAL BINDER IN PLACE.. UP WITH GB WALKER AND SBA AMBULATES TO BATHROOM WITH CGA FOR SAFETY. SCD'S IN PLACE, PT ABLE TO REPOSITION SELF IN BED. ENCOURAGING TO USE ISP INDEPENDENTLY. CAPITAN GRANDE BAND WEARS 2 HEARING AIDS, GLASSES. HAS A JACK TRIPLE LUMEN PICC THAT HAS GOOD BLOOD RETRUN AND FLUSHES WITHOUT DIFFICULTY. PT IS A DAILY WEIGHT SCHEDULED FOR 9 AM. TO HAVE PT/OT/ST EVALS AND TREATMENTS TOMORROW. CONTINUE TO MONITOR.
[2019-11-12 05:48] LABS: HEMATOCRIT 32.6 % (37.0-47.0); HEMOGLOBIN 11.1 gm/dL (12.0-15.0); MCH 32.8 pg (26.0-34.0); MCHC 34.1 g/dL (28.0-37.0); MCV 96.2 fL (80.0-100.0); RBC 3.39 mil/uL (4.20-5.00); RDW 14.6 % (10.5-14.5); WBC 8.2 thou/uL (4.0-11.0)
[2019-11-12 06:28] LABS: ALBUMIN 2.5 g/dL (3.4-5.0); CREATININE 0.7 mg/dL (0.6-1.0); MAGNESIUM 1.3 mg/dL (1.8-2.4); PHOSPHORUS 2.6 mg/dL (2.5-4.9)
[2019-11-12 08:00] VITALS: BP 163/66
--- NOTE | 2019-11-12 14:39 | NUR ---
ASSUMED CARES AT 0700. PT AWAKE, ALERT AND ORIENTED*4, FORGETFUL. DENIES PAIN. BP ELEVATED THIS AM, BP LOWERING MEDS ADMINISTERED. LS COARSE, ON 3L OXYGEN VIA NC, RECEIVING RT SCHEDULED, SATS REMAIN >92%. ABDOMEN SOFT AND ROUND, BS ACTIVE*4, LAST BM TODAY AM. ABDOMINAL LAP SITES REMAIN DRY AND INTACT. PICC LINE ON LEFT UPPER ARM REMAINS INTACT, DRESSING CHANGED BY ONLINE ADVERTISING DIRECTOR. LUMENS NOT ASPIRATING BLOOD, ALTEPLASE ADMINISTERED*2. PT HAS BLE EDEMA, EXTREMITIES ELEVATED. PT UP WITH 1 MIN ASSIST, GB AND WALKER AND TOLERATED WELL. Q1H VISUAL CHECKS. CALL LIGHT WITHIN REACH. FALL PRECAUTIONS IN PLACE
[2019-11-12 18:55] VITALS: BP 169/78
--- NOTE | 2019-11-13 02:30 | NUR ---
assumed care at approx 1900 evening 11/11. pt dozing in bed at change of shift with head of bed elevated. 02 at 3L per n/c. pt awoke to take hs meds with water tolerating well. pt denied complaints except stating she was tired. pt appears to be sleeping soundly with hourly rounding checks. bed alarm on and call light in reach. will continue to monitor.
[2019-11-13 06:19] LABS: ALBUMIN 2.5 g/dL (3.4-5.0); CALCIUM 8.3 mg/dL (8.5-10.1); CREATININE 0.6 mg/dL (0.6-1.0); MAGNESIUM 1.5 mg/dL (1.8-2.4); POTASSIUM 3.3 mmol/L (3.5-5.1); TOTAL BILIRUBIN 0.3 mg/dL (<0.1-1.0); TOTAL PROTEIN 4.8 g/dL (6.4-8.2)
--- NOTE | 2019-11-13 07:42 | HC ---
[facility] [place] [address] CONSULTATION Name: BOO RAMOS Room #: 503-P ADM IN M.R.#: [id number] Admission: 11/11/19 Attend Phys: Bradley Cruz MD Discharge: Date of : 33 Report #: [id number] THIS REPORT FOR: cc: Karine Fernández MD, Carrie W. MD McKittrick, Richard James MD ~ CC: Karine Lara MD [facility] Bradley Bland DO DATE OF SERVICE: 11/12/2019 REASON FOR CONSULTATION: Possible colon cancer. HISTORY OF PRESENT ILLNESS: The patient is a very pleasant 84-year-old female who presented with abdominal pain, possible enterocolitis. At the time of surgery, she was thought to have an ileocolonic mass. Path report that came back yesterday looks like no malignancy was found. I have talked with the surgeon who has seen the report, who is hoping that she was also positive, check with pathology. I discussed report with both the patient in person and the daughter by phone. I told them we are very hopeful that this is indeed nonmalignant may just be inflammation, but also that we are checking with the pathologist to make double/triple sure that this is correct. If this is true, this would be amazingly good results for the patient. She is now several days postop. She is still having some abdominal discomfort, but not bad. No unexplained fevers or chills or sweats. PAST MEDICAL HISTORY: Notable for the history of the colonic mass. Also, history of COPD with oxygen 2 liters at home, myocardial infarction in 1994, hypertension, hyperlipidemia. PAST SURGICAL HISTORY: Hysterectomy, colonoscopy 5 years ago, right shoulder surgery. 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 Quit smoking in 1985. Lives in assisted living facility. FAMILY HISTORY: No cancers, a very supportive daughter, Alma, who retired from the police department after about 30 years. MEDICATIONS: At this time in the hospital currently include amiodarone 200 mg daily, sertraline 150 daily, MiraLax 17 grams daily, losartan 50 daily, [facility] [address] [place] [address] CONSULTATION Name: BOO RAMOS V4 Room #: 503-P [facility] IN M.R.#: [id number] Admission: 11/11/19 Attend Phys: Bradley Cruz MD Discharge: Date of : 33 Report #: [id number] atorvastatin calcium 40 mg daily, aspirin 81 mg daily. Also, aripiprazole 5 mg daily, amlodipine 10 daily, calcium carbonate with breakfast, fish oil b.i.d., ipratropium and albuterol respiratory therapy q.i.d., pantoprazole 40 b.i.d., glucosamine daily, fluticasone nasal spray b.i.d., metoprolol 50 daily, gabapentin 300 b.i.d., bupropion 150 b.i.d. and several PRNs. PHYSICAL EXAMINATION: GENERAL: The patient appears her stated age. VITAL SIGNS: Her height is 5 feet 5 inches, weight is 152 pounds that is 69.1 kilograms or 165 cm. Blood pressure 163/66, O2 sat 95%, respirations 18, pulse 73, afebrile at 97.7. MOOD: The patient is alert and pleasant. NEUROLOGIC: The patient is moving extremities. Face is symmetrical. Speech and thought pattern normal. LUNGS: Has appeared to be symmetric, comfortable breathing. CARDIOVASCULAR: She has good skin color. ABDOMEN: Does not appear to be distended, not examined. EXTREMITIES: May have trace edema visible through socks, but minimal. ASSESSMENT AND PLAN: 1. Colon mass with recent path report not showing malignancy. We will have talked with Dr. Villegas who has planned to check with pathology to confirm that this is not malignant. It is possible the patient may have had an episode of diverticulitis inflammation past causing an adhesion, this will be excellent news, lymph nodes were reactive. There is serositis, but nothing to strongly suggest malignancy, but will await clarification. 2. Atrial fibrillation, rapid ventricular response; meds per Dr. Lara and others. 3. Chronic obstructive pulmonary disease. Continues oxygen and therapies. 4. Hypertension. Meds per others. 5. Hyperlipidemia. Meds per others. 6. Coronary artery disease. Aspirin and meds per others. 7. Osteoporosis, per others. 8. Mood disorder. Continue meds per others. We will follow with you. <ELECTRONICALLY SIGNED> By: Georges Neil MD 11/13/19 [id number] Georges Neil MD /nt
[2019-11-13 08:28] VITALS: BP 169/73
[2019-11-13 19:12] VITALS: BP 178/82
--- NOTE | 2019-11-13 19:16 | NUR ---
ASSUMED CARE OF PT AT 0700. PT IS A&OX4 AND VITAL SIGNS ARE STABLE. PT DENIES PAIN AND PARTICIPATED IN SCHEDULED THERAPIES AND ADL'S AMBULATED ON UNIT WITH NURSING STAFF. HR REGULAR, LUNG SOUNDS CLEAR/DIMINISHED IN ALL LOBES, ABDOMINAL SOUNDS ACTIVE IN ALL QUADS. ELECTROLYTES ADDRESSED BY PROVIDER AND REPLACED PER ORDERS. RUE TRIPLE LUMEN PICC LINE PATENT, DRESSING C/D/I, AND SITE WNL. FALL PRECAUTIONS IN PLACE AND NURSING WILL CONTINUE TO MONITOR.
--- NOTE | 2019-11-13 22:50 | NUR ---
PT ASSESSMENT COMPLETED AND VSS. MEDS GIVEN ORDERED AND WELL TOLERATED. UP TO THE BATHROOM WITH ASST/GAIT/WALKER. VOIDING MODERATE AMOUNT OF YELLOW URINE. ABD INCISION DRY AND HEALING. SAT WNL ON NC. RT TREATMENTS CONTINUE. PT DENIES NEEDS. SLEEPING WELL AT THIS TIME. WILL CONTINUE TO MONITOR FREQUENTLY.
[2019-11-14 05:17] VITALS: BP 162/76
[2019-11-14 07:40] VITALS: BP 135/56
--- NOTE | 2019-11-14 12:22 | NUR ---
ASSUMED CARE AT 0700, PT A&O X 4 NO ACUTE DISTRESS DURING SHIFT. VSS O2 ON 3L VIA NC. PT DENIES ANY PAIN OR DISCOMFORT. 3 ABD LAP SITES OPEN TO AIR CLEAN DRY AND INTACT. ASSIST X 1 USING GAIT BELT AND WALKER, TOLERATES MEDS WHOLE WITH WATER. 3 LUMEN PICC TO JACK, FLUSHES WELL WITH BLOOD RETURN. CONTINENT OF B&B, BM THIS MORNING. SITTING IN RECLINER, CALL LIGHT WITHIN REACH, WILL CONTINUE TO MONITOR PER POC.
[2019-11-14 19:04] VITALS: BP 158/62
--- NOTE | 2019-11-14 22:36 | NUR ---
ASSUMED CARE OF PT AT 1900. PT IS A&OX4. IS ON 2L OF O2/NC. IS STABLE. DENIES PAIN. IS UP WITH 1 ASSIST, GB, WALKER. FALL PRECAUTIONS & HOURLY ROUNDING CONTINUED THIS SHIFT. LABS & VITALS REVIEWED. PT IS CURRENTLY SLEEPING. CALL LIGHT WITHIN REACH. WILL CONTINUE TO MONITOR.
[2019-11-15 03:05] LABS: HEMATOCRIT 33.6 % (37.0-47.0); HEMOGLOBIN 11.4 gm/dL (12.0-15.0); MCH 32.8 pg (26.0-34.0); MCHC 33.9 g/dL (28.0-37.0); MCV 96.7 fL (80.0-100.0); PLATELET COUNT 206 thou/uL (150-400); RBC 3.48 mil/uL (4.20-5.00); RDW 14.8 % (10.5-14.5)
[2019-11-15 03:11] LABS: CALCIUM 8.3 mg/dL (8.5-10.1); CREATININE 0.6 mg/dL (0.6-1.0); MAGNESIUM 1.4 mg/dL (1.8-2.4); POTASSIUM 3.5 mmol/L (3.5-5.1)
[2019-11-15 04:12] LABS: ABSOLUTE NEUTROPHILS 7.6 thou/uL (1.4-8.2); ANISOCYTOSIS 1+
[2019-11-15 04:13] LABS: PLATELET ESTIMATE NORMAL; POIKILOCYTOSIS 1+
[2019-11-15 07:30] VITALS: BP 144/58
--- NOTE | 2019-11-15 10:15 | NUR ---
chart review. cm visited with pt via phone call. intro to cm, dcp, and team meeting. pt a & o x 3, pleasant and able to make her needs know. " live in apartment alone. 2nd floor, no stairs take the elevator. if use stairs 12 + steps to 2nd floor. independent with adl's. manage own medication. bake cookies on thursday and sundays for resident at [facility]. live in Independent living. have portable o2 2 L or in apartment on 3L concentrator. have walker with seat. grab bars in bathroom. built in shower bench. i do not use shower bench. have not driven in month but hopeful can drive in next few weeks. primary dr baldwin. no hh in past, been to rehab [facility]. [facility] support [facility] go to dinning room for meals. have call button to wear to call for help if needed."/ashli. " oh when am i getting to go home?"/pt. education that have meeting today and then will call her
--- NOTE | 2019-11-15 14:41 | NUR ---
ASSUMED CARE AT 0700, PT A&O X 4 NO ACUTE DISTRESS DURING SHIFT. VSS O2 ON RA. PT DENIES ANY PAIN OR DISCOMFORT. 3 LUMEN PICC TO JACK TO BE REMOVED TODAY, IV TEAM AWARE. PT ABD LAP SITES DERMABOND AND OPEN TO AIR, INCISION CLEAN DRY AND INTACT. PT ASSIST X 1 WITH TRANSFERS USING GAITBELT AND WALKER. MEDS GIVEN PER ORDERS. CONTINENT OF B&B THIS MORNING, BROWN AND LOOSE. BED IN LOWEST POSITION, CALL LIGHT WITHIN REACH, WILL CONTINUE TO MONITOR PER POC.
[2019-11-15 19:05] VITALS: BP 147/61
--- NOTE | 2019-11-15 22:48 | NUR ---
PT ASSESSMENT COMPLETED AND VSS. MEDS GIVEN ORDERED AND WELL TOLERATED. FALL PRECAUTIONS IN PLACE. UP TO THE BATHROOM WITH ASST/GAIT/WALKER. SAT WNL ON NC. PT STATED THAT SHE HAS BEEN HAVING TROUBLE SLEEPING AND REQUESTED SLEEP MEDS. MELATONIN GIVEN. SLEEPING AT THIS TIME. DENIES NEEDS. WILL CONTINUE TO MONITOR FREQUENTLY. ABD INCISION DRY/INTACT/HEALING.
[2019-11-16 07:50] VITALS: BP 131/55
--- NOTE | 2019-11-16 13:12 | NUR ---
ASSUMED CARES AT 0700. PT AWAKE, ALERT AND ORIENTED *3, FORGETFUL. DENIES PAIN. VITALS REMAIN STABLE. PT CONTINUES TO HAVE BLE, TUBAL TELEVISION SPECIALIST IN PLACE AND EXTREMITIES ELEVATED. ABDOMINAL LAP SITES REMAIN DRY, INTACT AND CASHIER GREETER. OLD PICC LINE SITE ON RUE REMAINS INTACT, NO BLEEDING NOTED, DRESSING IS INTACT. OXYGEN ON AT 2L WITH SATS STABLE. PT UP WITH 1 MOD ASSIST, GB AND WALKER AND TOLERATED WELL. Q1H VISUAL CHECKS. CALL LIGHT WITHIN REACH. FALL PRECAUTIONS IN PLACE
--- NOTE | 2019-11-16 15:10 | NUR ---
FAXED REFERRAL TO [facility] SPOKE WITH DEION IN INTAKE SHE RECEIVED REFERRAL AND CAN ACCEPT. ANTICIPATE DC 11/23.
[2019-11-16 19:00] VITALS: BP 149/57
--- NOTE | 2019-11-17 01:14 | NUR ---
PT ASSESSMENT DONE AND VSS. MEDS GIVEN AND WELL TOLERATED. FALL PRECAUTIONS IN PLACE. PT WANTED TO STAY IN CHAIR TO WATCH TV UNTIL LATER BEDTIME. ASSISTED TO BR WITH GATE BELT, WALKER. HELPED HER GET READY FOR BED AFTER SHE URINATED. TUBI-BODYBUILDER TAKEN OFF FOR OVERNIGHT. LEFT UPPER ARM PICC DRESSING REMOVED. NO DRAINAGE/REDNESS. SURGERY SITES TO ABD D/I. SLEEPING WELL OVERNIGHT. CALL LIGHT IN REACH. WILL CONTINUE TO MONITOR.
[2019-11-17 08:00] VITALS: BP 132/60
--- NOTE | 2019-11-17 10:37 | NUR ---
Nutrition followup: pt continues on rehab unit S/P enterocolitis and SBO on acute. Dx medical complexity, general debility. Colon biopsy negative. Has been eating average 45% of meals past several days and 100% of ensure enlive BID. Supplements alone meeting 41% kcal needs, 60% protein needs. Instructed/assisted pt with meal ordering as desired. ~Stable weights. Planned D/C on 11/23. Change to low nutrition risk.
--- NOTE | 2019-11-17 12:42 | NUR ---
ASSUMED CARES AT 0700. PT AWAKE, ORIENTED TO PERSON, PLACE AND SITUATION. DENIES PAIN. VITALS REMAIN STABLE. LS COARSE, ON 3L OXYGEN VIA NC, PHYSICAL THERAPIST REPORTS DESAT WITH AMBULATION BUT RECOVERS QUICKLY WITH REST. SOB NOTED WITH EXERCION. PT CONTINUES TO HAVE BLE EDEMA, TUBAL CADD TECHNICIAN IN PLACE. PT UP WITH 1 MIN ASSIST, GB AND WALKER AND O2. Q1H VISUAL CHECKS. CALL LIGHT WITHIN REACH. FALL PRECAUTIONS IN PLACE
[2019-11-17 19:59] VITALS: BP 139/62
--- NOTE | 2019-11-18 02:24 | NUR ---
PT CARE ASSUMED AT 1900 WITH PT INBED WATCHING TV.PT IS UP WITH X1 ASSIST WITH GAIT BELT AND WALKER.PT APPEAR TO BE IN NO ACUTE DISTRESS.PT IS ON 2L OF O2 NC.WILL CONTINUE TO MONITOR PER POC
[2019-11-18 05:26] LABS: ABSOLUTE NEUTROPHILS 7.9 thou/uL (1.4-8.2); BASOPHILS 0.5 % (0.0-2.0); EOSINOPHILS 1.4 % (0.0-3.0); HEMATOCRIT 32.5 % (37.0-47.0); HEMOGLOBIN 11.1 gm/dL (12.0-15.0); LYMPHOCYTES 9.1 % (24.0-44.0); MCHC 34.1 g/dL (28.0-37.0); MCV 96.7 fL (80.0-100.0); MONOCYTES 9.1 % (1.0-8.0); PLATELET COUNT 293 thou/uL (150-400); POLYS 79.9 % (36.0-66.0); RBC 3.37 mil/uL (4.20-5.00); RDW 14.9 % (10.5-14.5); WBC 9.9 thou/uL (4.0-11.0)
[2019-11-18 05:47] LABS: CREATININE 0.7 mg/dL (0.6-1.0); MAGNESIUM 1.6 mg/dL (1.8-2.4)
[2019-11-18 08:00] VITALS: BP 139/68
--- NOTE | 2019-11-18 18:41 | NUR ---
ASSUMED CARE AT 0700, PT A&O X 4 NO ACUTE DISTRESS DURIRNG SHIFT. VSS O2 ON 2L VIA NC. PT DENIES ANY PAIN OR DISCOMFORT. MEDS GIVEN PER ORDERS. PARTICIPATED IN ANISA THERAPIES. CONTINENT OF B&B BM X 2 ASHLI AND ALEXEI. SITTING IN RECLINER, CALL LIGHT WITHIN REACH, WILL CONTINUE TO MONITOR PER POC.
[2019-11-18 19:30] VITALS: BP 118/58
--- NOTE | 2019-11-19 01:45 | NUR ---
UP TO TOILET WITH MIN ASSIST AND 4 WHEEL WALKER FOR VOID AND SMALL BM. BLE EDEMA, MARYCARMEN HOSE OFF AT HS AND SCDs ON. DENIES PAIN, ABD SITES PONCE, O2 1L PNC
[2019-11-19 07:41] VITALS: BP 124/54
--- NOTE | 2019-11-19 14:41 | NUR ---
ASSUMED CARES AT 0700. PT AWAKE, ALERT AND ORIENTED*3. DENIES PAIN. VITALS REMAIN STABLE. PT CONTINUES TO HAVE BLE EDEMA, MARYCARMEN HOSE IN PLACE AND EXTREMITIES ELEVATED. ABDOMINAL LAP SITES REMAIN DRY AND INTACT. ABDOMEN SOFT AND ROUND, MIRALAX HELD TODAY R/T STAFF AND PT REPORTED LOOSE&LIQ STOOLS OVERNIGHT AND YESTERAFTERNOON. PT REMAINS ON 2L OXYGEN VIA NC WITH SATS >93%. UP WITH 1 MIN ASSIST, GB AND WALKER AND TOLERATED WELL. Q1H VISUAL CHECKS. CALL LIGHT WITHIN REACH. FALL PRECAUTIONS IN PLACE
[2019-11-19 19:30] VITALS: BP 151/75
--- NOTE | 2019-11-20 00:29 | NUR ---
UP TO TOILET WITH O2, 4 WHEEL WALKER, GAIT BELT, AND MINIMAL ASSIST. LAST BM WAS 11/18 AT 0700
--- NOTE | 2019-11-20 05:51 | NUR ---
RESTING WELL OVERNIGHT, TOLERATING SCDs. USING O2 2L PER NASAL CANNULA SHE DOES AT HOME. ABD [facility] PONCE
[2019-11-20 08:15] VITALS: BP 130/68
--- NOTE | 2019-11-20 08:24 | NUR ---
ASSUMED CARE OF PT AT 0700. PT IS A&OX4. IS ON 2L OF O2/NC. IS STABLE. DENIES SOB & PAIN. IS UP WITH 1 ASSIST, GB, WALKER. FALL PRECAUTIONS & HOURLY ROUNDING CONTINUED THIS SHIFT. LABS & VITALS REVIEWED. PT IS CURRENTLY EATING BREAKFAST. CALL LIGHT WITHIN REACH. WILL CONTINUE TO MONITOR.
[2019-11-20 20:00] VITALS: BP 133/68
--- NOTE | 2019-11-21 02:09 | NUR ---
patient aox4 makes needs known. patient has 02 2l, soa noted with activities. patient ambulates to the bathroom slowly with a walker with steady gaits. patient needs moderate assistance with adl, bed mobility, transfer and toileting.scd on.call light and personal item within reach. fall precaution in place. patient in bed asleep at this time breathing regular and unlaboured.
[2019-11-21 07:15] VITALS: BP 139/73
--- NOTE | 2019-11-21 17:48 | NUR ---
ASSUMED CARES AT 0700. REPORTS SLEPT GOOD LAST NIGHT. ALERT AND ORIENTED X3 ABLE TO VOICE HER NEEDS. [place]. DENIES PAIN. VVS ON RA. CONT B&B. PT CONTINUES TO HAVE BLE EDEMA, MARYCARMEN HOSE IN PLACE WHEN UP AND EXTREMITIES ELEVATED. ABDOMINAL LAP SITES REMAIN DRY AND INTACT. ABDOMEN SOFT AND ROUND, MIRALAX GIVEN TODAY. HAD ONE LOOSE BM TODAY. HAS HX OF SBO. PT REMAINS ON 2L OXYGEN VIA NC. UP WITH 1 MIN ASSIST, GB AND WALKER AND TOLERATED WELL. OFFERED SUPPORTIVE CARE. UP TO WC FOR MEALS. PARTICIPATED WELL WITH THERAPY. TOOK NAP AFTER THERAPY. UP TO WC EATING DINNER. HAS FAIR APPETITE, ABLE TO FEED SELF. TOOK MEDS ONE AT THE TIME. TOLERATES WELL. Q1H VISUAL CHECKS. CALL LIGHT WITHIN REACH. FALL PRECAUTIONS IN PLACE. WILL GIVE REPORT TO NIGHT NURSE TO CONTINUE TO MONITOR.
[2019-11-21 20:03] VITALS: BP 139/75
--- NOTE | 2019-11-21 23:04 | NUR ---
pt care assumed at 1900 with pt in bed watching tv. pt is up with gait belt and walker and x1 assist.pt asked for melatonon for sleep.pt jose hose removed as prescribed.care handed over to another nurse at 2300.
--- NOTE | 2019-11-21 23:31 | NUR ---
TOOK OVER CARE AT 2300 FROM OFF GOING NURSE. HOURLY ROUNDING. WILL CONTINUE TO MONITOR.
[2019-11-22 04:57] LABS: ABSOLUTE NEUTROPHILS 5.5 thou/uL (1.4-8.2); BASOPHILS 0.8 % (0.0-2.0); EOSINOPHILS 3.3 % (0.0-3.0); HEMOGLOBIN 10.7 gm/dL (12.0-15.0); LYMPHOCYTES 10.9 % (24.0-44.0); MCH 33.2 pg (26.0-34.0); MCHC 34.4 g/dL (28.0-37.0); MCV 96.5 fL (80.0-100.0); MONOCYTES 8.9 % (1.0-8.0); PLATELET COUNT 346 thou/uL (150-400); POLYS 76.1 % (36.0-66.0); RBC 3.22 mil/uL (4.20-5.00); RDW 14.9 % (10.5-14.5); WBC 7.2 thou/uL (4.0-11.0)
[2019-11-22 05:06] LABS: CREATININE 0.7 mg/dL (0.6-1.0); MAGNESIUM 1.7 mg/dL (1.8-2.4)
[2019-11-22 07:15] VITALS: BP 136/72
--- NOTE | 2019-11-22 12:20 | NUR ---
team meeting, recommendation: no driving, daughter to assist with pills and bills. initial supervision with ad's and intermitted checks. tete sam (pt,ot,st, and nursing). will cont following as needed for dc needs.
--- NOTE | 2019-11-22 16:23 | NUR ---
FAXED REFERRAL TO [facility] RECEIVED CONFIRMATION AND LEFT MSG WITH ELLEN IN ADM THAT PT IS NEEDING A RESPITE STAY WITH HH AT DISCHARGE PT LIVES AT [facility] I.L. WILL F/U WITH FACILITY IN THE AM. DP TO FOLLOW.
--- NOTE | 2019-11-22 16:46 | NUR ---
ASSUMED CARE AT 0700, PT A&O X 4, NO ACUTE DISTRESS. VSS O2 ON 2L VIA NC. PT C/O OF R HIP PAIN, MARGOT SEPARATIONS SCIENTIST NOTIFIED AND PRN NORCO AND TYLENOL ORDERED WELL PELVIC SCAN. MEDS GIVEN PER ORDERS AND PT PARTICIPATED IN THERAPY. CONTINENT OF B&B, LAST BM 11/21/19 PT REFUSED ANISA MIRALAX. BED IN LOWEST POSITION, CALL LIGHT WITHIN REACH, WILL CONTINUE TO MONITOR PER POC.
[2019-11-22 19:20] VITALS: BP 127/68
--- NOTE | 2019-11-23 02:45 | NUR ---
RESTING WELL TONIGHT, WAS ABLE TO CHANGE CLOTHES TO GET READY FOR BED LAST NIGHT INCLUDING 8 SMALL BUTTONS ON HER PAJAMA TOP. TO TOILET WITH GAITBELT, 4 WHEEL WALKER, AND STANDBY ASSIST. PULLS BATHROOM LIGHT APPOPRIATELY AND WAITS FOR STAFF TO STANDBY ASSIST. MELATONIN 6 MG PER REQUEST.
[2019-11-23 08:34] VITALS: BP 143/73
--- NOTE | 2019-11-23 11:47 | NUR ---
ASSUMED CARES AT 0700. PT AWAKE, ALERT AND ORIENTED*4 BUT FORGETFUL. DENIES PAIN. VITALS REMAIN STABLE. ABDOMINAL INCISION HEALING WELL. CONTINUES TO HAVE BLE EDEMA, TEDHOSE IN PLACE AND EXTREMITIES ELEVATED. BS ACTIVE*4, ABDOMEN SOFT AND ROUND, *1 MED SOFT "PALLET-LIKE" BM, MIRALAX ADMINISTERED PER ORDER. PT UP WITH 1 MIN ASSIST, GB AND WALKER AND TOLERATED WELL. Q1H VISUAL CHECKS. CALL LIGHT WITHIN REACH. FALL PRECAUTIONS IN PLACE
--- NOTE | 2019-11-23 14:11 | NUR ---
CHENG reviewed chart. Discharge to [facility] with [facility] is anticipated for tomorrow. CHENG spoke with Andreia in intake at [facility] who states that they are able to accept pt onto service. CHENG received ppwk from Khadijah at [facility] requesting additional documentation. CHENG contacted hospitalist WOODEN FENCE ERECTOR, who completed forms. CHENG faxed to Khadijah at [phone] for review. CHENG spoke with pt's dtr, Alma, via phone to provide update and confirm discharge plan. Alma is aware and in agreement with plan. Per Alma, pt is unaware that she will be going to the [facility] apt[facility] upon her return. Alma asked SW to notify pt. CHENG spoke with pt via phone to provide update and discuss discharge disposition. Pt verbalized understanding and is aware of going to [facility] with and then [facility]p plan will be determined. CHENG is following to assist as needed with discharge planning.
[2019-11-23 19:50] VITALS: BP 137/67
--- NOTE | 2019-11-24 02:40 | NUR ---
Assumed pt care at 1900. Pt's A/OX4,SUN'AQ.VSS. Pt ambulated the hallway with staff twice with minimal assist GB/RW w/o problems. Denies pain on assessment. Continent of B&B. Lap sites on abd C/D/I. Edema noted on Anthony feet,encouraged to keep extremities elevated when in bed. SCDs applied at bedtime. Resting quietly w/o distress oxygen in place. Fall precautions in place,calls approp for help,will continue to monitor pt.
[2019-11-24 08:00] VITALS: BP 119/61
[2019-11-24] MEDS ORDERED: IPRAT-ALBUT 0.5-3 ML INH (08:14)
[2019-11-24] MEDS ORDERED: MELATONIN5 M1 PO (08:14)
[2019-11-24] MEDS ORDERED: PACERONE 200 M200 M1 PO ×2 (08:14→09:47)
[2019-11-24] MEDS ORDERED: COZAAR 50 MG TA50 MG PO (08:14)
[2019-11-24] MEDS ORDERED: NORVASC10 MG PO (08:14)
[2019-11-24 09:15] VITALS: BP 119/61
[2019-11-24] MEDS ORDERED: TOPROL XL50 MG PO ×2 (09:47→16:13)
--- NOTE | 2019-11-24 10:18 | NUR ---
ASSUMED CARES AT 0700. VITALS REMAIN STABLE. PT ALERT AND ORIENTED*4. DENIES PAIN. LS CLEAR, ON 2L OXYGEN VIA NC WITH SATS >95%. CONTINUES TO HAVE MILD BLE EDEMA, TEDHOSE IN PLACE AND EXTREMITIES ELEVATED. ABDOMINAL LAP SITES HEALING, NO DISCHARGE/ SIGNS OF INFECTION NOTED. PT UP WITH 1 SBA, GB AND WALKER AND TOLERATED WELL. PT WILL DC THIS AFTERNOON TO [facility], REPORT TO BE GIVEN TO RECEIVING RN PRIOR TO DC. Q1H VISUAL CHECKS. CALL LIGHT WITHIN REACH. FALL PRECAUTIONS IN PLACE
[2019-11-24] MEDS ORDERED: TOPROL XL25 MG PO ×2 (10:28→12:33)
--- NOTE | 2019-11-24 10:41 | NUR ---
DISCHARGE NOTE: SW reviewed chart and spoke with nursing. Pt is medically stable for discharge to [facility] today with [facility]. community planner to fax finalized discharge orders/summary to [place] facility and HH. CHENG spoke with pt's dtr, Alma, via phone to provide update and discuss discharge plan. Alma to pick up worker pt around 1300 today. Pt's nurse is aware of discharge time. Number provided for nurse to call report. No additional SW needs identified at this time, but is available to assist should needs arise.
--- NOTE | 2019-11-24 13:15 | NUR ---
FAXED DC ORDERS/SUMMARY TO [facility] RECEIVED CONFIRMATION AND FAXED ORDERS TO [facility] SPOKE WITH TITI IN INTAKE SHE RECEIVED ORDERS AND WILL NOTIFY PT TIME OF VISITS.
== END 2019-11-24 13:24 | DRG 948 ==
PROVIDERS: Internal Medicine; Nurse Practitioner; Nurse Practitioner Family; ADMIT Physical Medicine & Rehabilitation
DX: R53.81 Other malaise (principal); K56.609 Unspecified intestinal obstruction, unspecified as to partial versus complete obstruction; I48.92 Unspecified atrial flutter; K56.7 Ileus, unspecified; E87.1 Hypo-osmolality and hyponatremia; D68.59 Other primary thrombophilia; E46 Unspecified protein-calorie malnutrition; J44.9 Chronic obstructive pulmonary disease, unspecified; I10 Essential (primary) hypertension; E78.5 Hyperlipidemia, unspecified; Z99.81 Dependence on supplemental oxygen; I25.2 Old myocardial infarction; Z90.710 Acquired absence of both cervix and uterus; Z87.891 Personal history of nicotine dependence; I48.91 Unspecified atrial fibrillation; I25.10 Atherosclerotic heart disease of native coronary artery without angina pectoris; M81.0 Age-related osteoporosis without current pathological fracture; F39 Unspecified mood [affective] disorder; K63.9 Disease of intestine, unspecified; Z90.49 Acquired absence of other specified parts of digestive tract; K52.9 Noninfective gastroenteritis and colitis, unspecified; I16.0 Hypertensive urgency; F32.9 Major depressive disorder, single episode, unspecified; F01.50 Vascular dementia, unspecified severity, without behavioral disturbance, psychotic disturbance, mood disturbance, and anxiety; F41.9 Anxiety disorder, unspecified; E83.42 Hypomagnesemia; E87.6 Hypokalemia; Z68.25 Body mass index [BMI] 25.0-25.9, adult
CPT/HCPCS: 10112

== ENCOUNTER 2020-06-28 09:41 | Emergency (ER) | payer OTHER, BC ==
[~2020-06-28] VITALS: Ht 165.1 cm; Wt 45.4 kg
[~2020-06-28 09:41] MED LIST changes: +IPRAT-ALBUT 0.5-3 ML INH; +MELATONIN5 M1 PO; +TOPROL XL50 MG PO
[2020-06-28] MEDS ORDERED: CENTRUM SILVER1 EAC5 PO (09:49)
[2020-06-28] MEDS ORDERED: VITAMIN B-121000 MC2 PO (09:50)
[2020-06-28 12:23] VITALS: BP 148/67
== END 2020-06-28 12:23 | disposition home or self-care (01) ==
LOC: ER 09:41
DX: S51.811A Laceration without foreign body of right forearm, initial encounter (principal); S00.83XA Contusion of other part of head, initial encounter; I10 Essential (primary) hypertension; E78.00 Pure hypercholesterolemia, unspecified; J44.9 Chronic obstructive pulmonary disease, unspecified; I25.2 Old myocardial infarction; Z79.82 Long term (current) use of aspirin; Z90.711 Acquired absence of uterus with remaining cervical stump; Z79.899 Other long term (current) drug therapy; W18.39XA Other fall on same level, initial encounter; Y93.89 Activity, other specified; Y92.89 Other specified places as the place of occurrence of the external cause; Y99.8 Other external cause status

== ENCOUNTER → 2020-07-05 | Outpatient (CLI) | payer OTHER, BC ==
[~2020-07-05] MED LIST changes: +CENTRUM SILVER1 EAC5 PO; +VITAMIN B-121000 MC2 PO
== END ==
LOC: SJCVC 13:29
PROVIDERS: ATTEND Internal Medicine
DX: R94.31 Abnormal electrocardiogram [ECG] [EKG] (principal); I48.92 Unspecified atrial flutter; I10 Essential (primary) hypertension; E78.5 Hyperlipidemia, unspecified; J44.9 Chronic obstructive pulmonary disease, unspecified; Z79.899 Other long term (current) drug therapy; Z87.891 Personal history of nicotine dependence